=== PATIENT | male | born 1935 | race Caucasian/White ===

== ENCOUNTER 2018-03-24 14:03 | Inpatient (IN) | payer OTHER ==
[~2018-03-24] VITALS: Ht 177.8 cm; Wt 64.0 kg
[2018-03-24 14:09] VITALS: BP 137/58
[2018-03-24] MEDS ORDERED: VITAMIN B-12500 MCG PO (14:21)
[2018-03-24] MEDS ORDERED: OMEPRAZOLE 20 M20 M1 PO (14:22)
[2018-03-24] MEDS ORDERED: MIDODRINE HCL 55 M1 PO (14:22)
[2018-03-24] MEDS ORDERED: IRON325 PO (14:22)
[2018-03-24 14:25] LABS: HEMATOCRIT 29.2 % (42.0-52.0); HEMOGLOBIN 9.9 gm/dL (14.0-18.0); MCH 35.1 pg (26.0-34.0); MCHC 33.8 g/dL (28.0-37.0); MPV 7.5 fl. (7.2-11.1); NUCLEATED RBCS 0 /100WBC; PLATELET COUNT* 142 thou/uL (150-400); RBC 2.81 mil/uL (4.50-6.00); WBC 4.4 thou/uL (4.0-11.0)
[2018-03-24 14:43] LABS: APTT 27.4 Seconds (25.0-31.3); INR 1.1; PROTIME 10.6 Seconds (9.20-11.50)
[2018-03-24 14:51] LABS: ANION GAP 5 mmol/L (7-16); BUN 19 mg/dL (7-18); CALCIUM 8.4 mg/dL (8.5-10.1); CHLORIDE 102 mmol/L (98-107); CO2 30 mmol/L (21-32); CREATININE 1.3 mg/dL (0.6-1.3); GLUCOSE 98 mg/dL (70-99); SODIUM 137 mmol/L (136-145)
[2018-03-24 15:01] LABS: ABSOLUTE EOSINOPHILS 0.1 thou/uL (0.0-0.7); ABSOLUTE LYMPHOCYTES 0.3 thou/uL (0.8-5.3); ABSOLUTE MONOCYTES 0.3 thou/uL (0.0-1.2); ABSOLUTE NEUTROPHILS 3.7 thou/uL (1.6-8.1); ALBUMIN 3.5 g/dL (3.4-5.0); ALKALINE PHOSPHATASE 85 U/L (46-116); CK-MB MASS 1.6 ng/mL (<0.5-3.6); LIPASE 145 U/L (73-393); MAGNESIUM 1.9 mg/dL (1.8-2.4); NT-PRO BRAIN NAT PEPTIDE 408 pg/mL (<300); SGOT 22 U/L (15-37); SGPT 26 U/L (30-65); TOTAL BILIRUBIN 0.8 mg/dL (<0.1-1.0); TOTAL PROTEIN 7.1 g/dL (6.4-8.2); TROPONIN-I LEVEL <0.06 ng/mL (<0.06)
[2018-03-24 15:03] LABS: ANISOCYTOSIS 1+; MACROCYTES 1+; PLATELET ESTIMATE ADEQUATE
--- NOTE | 2018-03-24 15:08 | EKG ---
[place] [address] ELECTROCARDIOGRAM REPORT Name: VIANNEY MONTERO Room: [facility]#: [id number] Admission: 03/24/18 Attend Phys: Discharge: Date of : 37 Report #: [id number] THIS REPORT FOR: //name// [facility] ED Test Date: 2018-03-24 Test Time: 14:09:55 Pat Name: VIANNEY MONTERO Department: Room: Gender: M [employer]: : 1935 Requested By: Felix Kiser Order Number: [id number] MD: Farhan Burton Measurements Intervals [place] Rate: 55 P: -69 FL: 199 QRS: 45 QRSD: 91 T: 59 QT: 413 QTc: 395 Interpretive Statements Sinus or ectopic atrial rhythm No previous ECG available for comparison Electronically Signed On 03-24-2018 15:08:11 CDT by Farhan Burton [email or web address] <ELECTRONICALLY SIGNED> By: Farhan Burton MD, [facility] 03/24/18 1508 1409 1409 Farhan Burton MD, FACC /EPI
[2018-03-24 18:00] VITALS: BP 149/53
[2018-03-24 19:00] VITALS: BP 118/43
[2018-03-24 20:00] VITALS: BP 120/45
[2018-03-25] VITALS: BP 106/48
[2018-03-25 08:15] VITALS: BP 98/51
[2018-03-25 09:04] LABS: % SATURATION 19 % (20-39); IRON 40 ug/dL (50-175)
[2018-03-25 11:24] LABS: HEMATOCRIT 24.6 % (42.0-52.0); HEMOGLOBIN 8.5 gm/dL (14.0-18.0); MCH 35.1 pg (26.0-34.0); MCHC 34.4 g/dL (28.0-37.0); MPV 8.5 fl. (7.2-11.1); NUCLEATED RBCS 0 /100WBC; PLATELET COUNT* 133 thou/uL (150-400); RBC 2.41 mil/uL (4.50-6.00); RDW-CV 18.6 % (10.5-14.5); WBC 3.7 thou/uL (4.0-11.0)
[2018-03-25 11:33] LABS: ALBUMIN 3.1 g/dL (3.4-5.0); CALCIUM 8.5 mg/dL (8.5-10.1); CREATININE 1.3 mg/dL (0.6-1.3); POTASSIUM 3.7 mmol/L (3.5-5.1); TOTAL BILIRUBIN 0.8 mg/dL (<0.1-1.0); TOTAL PROTEIN 6.3 g/dL (6.4-8.2)
[2018-03-25 11:44] LABS: ABSOLUTE LYMPHOCYTES 0.2 thou/uL (0.8-5.3); ABSOLUTE NEUTROPHILS 3.5 thou/uL (1.6-8.1)
[2018-03-25 11:45] LABS: ANISOCYTOSIS 1+; PLATELET ESTIMATE DECREASED; POIKILOCYTOSIS 1+
[2018-03-25 11:54] VITALS: BP 104/37
[2018-03-25 14:12] VITALS: BP 102/38
--- NOTE | 2018-03-25 15:01 | 2DMMODE ---
[place] [address] 2 D/M-MODE ECHOCARDIOGRAM Name: VIANNEY MONTERO Room: [address] ADM IN [facility]#: [id number] Admission: 03/24/18 Attend Phys: Anyi Elena Discharge: Date of : 37 Date of Service: 03/25/18 1501 Report #: [id number] THIS REPORT FOR: //name// APPROVED REPORT Study performed: 03/25/2018 13:25:31 EXAM: Comprehensive 2D, Doppler, and color-flow Echocardiogram Patient Location: In-Patient Room #: 210 Status: routine BSA: 1.79 HR: 89 bpm BP: 104/37 mmHg Rhythm: NSR Other Information Study Quality: Good Indications Hypotension 2D Dimensions LVEF(%): 88.37 (>50%) IVSd: 12.72 (7-11mm) LVOT Diam: 19.38 (18-24mm) LVDd: 41.68 mm PWd: 12.91 (7-11mm) Ascending Ao: 30.80 (22-36mm) LVDs: 17.45 (25-40mm) Aortic Root: 32.08 mm Frederick's LVEF: 88.37 % Aortic Valve AoV Peak Wilber.: 1.88 m/s AO Peak Gr.: 14.08 mmHg LVOT Max P.70 mmHg AO Mean Gr.: 7.97 mmHg LVOT Mean P.20 mmHg LVOT Max V: 1.64 m/s AO V2 VTI: 35.79 cm LVOT Mean V: 1.04 m/s JI (VTI): 2.44 cm2 LVOT V1 VTI: 29.64 cm Mitral Valve E/A Ratio: 1.03 MV Decel. Time: 292.81 ms MV E Max Wilber.: 0.90 m/s MV PHT: 84.91 ms MVA (PHT): 2.59 cm2 [place] [address] 2 D/M-MODE ECHOCARDIOGRAM Name: VIANNEY MONTERO Room: [address] IN .R.#: [id number] Admission: 03/24/18 Attend Phys: Anyi Elena Discharge: Date of : 37 Date of Service: 03/25/18 1501 Report #: [id number] TDI E/Lateral E': 6.43 E/Medial E': 8.18 Medial E' Wilber.: 0.11 m/s Lateral E' Wilber.: 0.14 m/s Pulmonary Valve PV Peak Wilber.: 1.38 m/s PV Peak Gr.: 7.66 mmHg Left Ventricle The left ventricle is normal size. There is normal LV segmental wall motion. Mild concentric left ventricular hypertrophy. Left ventricular systolic function is hyperdynamic. LVEF is >70%. The left ventricular diastolic function is normal. Right Ventricle The right ventricle is normal size. The right ventricular systolic function is normal. Atria The left atrium size is normal. The right atrium size is normal. Aortic Valve The aortic valve is normal in structure. No aortic regurgitation is present. There is no aortic valvular stenosis. Mitral Valve The mitral valve is normal in structure. There is no mitral valve regurgitation noted. No evidence of mitral valve stenosis. Tricuspid Valve The tricuspid valve is normal in structure. Trace tricuspid regurgitation. Pulmonic Valve Pulmonic valve is not well visualized. There is no pulmonic valvular regurgitation. Great Vessels The aortic root is normal in size. IVC is normal in size and collapses with >50% inspiration Pericardium There is no [place] [address] 2 D/M-MODE ECHOCARDIOGRAM Name: VIANNEY MONTERO Room: [address] IN [facility]#: [id number] Admission: 03/24/18 Attend Phys: Anyi Elena Discharge: Date of : 37 Date of Service: 03/25/18 1501 Report #: [id number] <Conclusion> LVEF is >70%. Mild concentric left ventricular hypertrophy. <ELECTRONICALLY SIGNED> By: David Ruiz MD, [facility] 03/25/18 1501 1501 1501 David Ruiz MD, [facility] /INF
[2018-03-25 15:46] VITALS: BP 89/43
[2018-03-25 20:00] VITALS: BP 113/41
[2018-03-26] VITALS: BP 122/45
[2018-03-26 04:00] VITALS: BP 116/53
[2018-03-26 08:48] VITALS: BP 107/71
[2018-03-26 11:48] LABS: HEMATOCRIT 27.4 % (42.0-52.0); HEMOGLOBIN 9.4 gm/dL (14.0-18.0); MCH 35.6 pg (26.0-34.0); MCHC 34.5 g/dL (28.0-37.0); MCV 103.2 fL (80.0-100.0); MPV 7.8 fl. (7.2-11.1); NUCLEATED RBCS 0 /100WBC; PLATELET COUNT* 144 thou/uL (150-400); RBC 2.65 mil/uL (4.50-6.00); RDW-CV 19.2 % (10.5-14.5); WBC 10.4 thou/uL (4.0-11.0)
[2018-03-26 11:52] VITALS: BP 97/41
[2018-03-26 12:08] LABS: ALBUMIN 3.5 g/dL (3.4-5.0); CALCIUM 8.8 mg/dL (8.5-10.1); CREATININE 1.1 mg/dL (0.6-1.3); MAGNESIUM 1.9 mg/dL (1.8-2.4); TOTAL PROTEIN 6.8 g/dL (6.4-8.2)
[2018-03-26 12:48] LABS: ABSOLUTE LYMPHOCYTES 0.5 thou/uL (0.8-5.3); ABSOLUTE MONOCYTES 0.1 thou/uL (0.0-1.2); ABSOLUTE NEUTROPHILS 9.8 thou/uL (1.6-8.1); ANISOCYTOSIS 1+; PLATELET ESTIMATE DECREASED; POIKILOCYTOSIS 1+
[2018-03-26 16:01] VITALS: BP 91/42
[2018-03-26 20:00] VITALS: BP 101/42
[2018-03-27] VITALS: BP 105/55
[2018-03-27 04:00] VITALS: BP 120/60
[2018-03-27 04:53] LABS: HEMATOCRIT 27.1 % (42.0-52.0); HEMOGLOBIN 9.2 gm/dL (14.0-18.0); MCH 35.1 pg (26.0-34.0); MPV 8.7 fl. (7.2-11.1); RBC 2.63 mil/uL (4.50-6.00); RDW-CV 19.5 % (10.5-14.5)
[2018-03-27 05:18] LABS: CALCIUM 8.7 mg/dL (8.5-10.1); MAGNESIUM 1.7 mg/dL (1.8-2.4)
[2018-03-27 08:05] VITALS: BP 108/47
[2018-03-27] MEDS ORDERED: ACIDOPHILUS1 EAC4 PO (09:44)
[2018-03-27] MEDS ORDERED: CEFUROXIME500 MG PO (09:44)
[2018-03-27] MEDS ORDERED: VENTOLIN HFA 1818 GM INH (09:44)
[2018-03-27] MEDS ORDERED: FLORINEF ACETA0.1 MG PO (09:44)
[2018-03-27 11:59] VITALS: BP 108/47
[2018-03-27 12:00] VITALS: BP 119/58
--- NOTE | 2018-03-28 07:54 | CON ---
[address] [address] CONSULTATION Name: BRYANTCHARLAVIANNEY Diaz Room: [address] IN M.R.#: [id number] Admission: 03/24/18 Attend Phys: Naomie Smart Discharge: 03/27/18 Date of : 37 Report #: [id number] THIS REPORT FOR: //name// CC: MONO Elena DATE OF SERVICE: 03/25/2018 INFECTIOUS DISEASE CONSULTATION ATTENDING PHYSICIAN: Dr. Elena. REASON FOR EVALUATION: Pneumonitis, hypotension. HISTORY OF PRESENT ILLNESS: Chart reviewed, patient examined. 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 He believes he was diagnosed with pneumonia as well down there. He was scheduled followup with his primary care physician who he saw. Screening at that time showed systolic hypotension with levels in the 70s. He had been lightheaded as well, although no recent falls. On evaluation, chest x-ray showed right-sided infiltrate suggesting pneumonitis. CT of the pelvis was unremarkable. White count was actually normal. At this point, he is off oxygen therapy. He denies significant amount of cough. He does get dyspneic with activity, although not short of breath with rest. It is not clear if he has had any fever. He has had somewhat progressive weight loss of perhaps 30 pounds, although this has been over several months. He has not had any weight loss recently, although he states he has a poor appetite. Denies any significant GI related complaints. ALLERGIES: None known. MEDICATIONS: Include megestrol, multivitamin, Lactobacillus, fish oil, psyllium, Zosyn, ipratropium and albuterol inhaler, methylprednisolone. PAST MEDICAL HISTORY: As noted above, cataract surgery. SOCIAL HISTORY: Nonsmoker, no ethanol. FAMILY HISTORY: Noncontributory. REVIEW OF SYSTEMS: [place] [address] CONSULTATION Name: VIANNEY MONTERO Room: [address]#: [id number] Admission: 03/24/18 Attend Phys: Naomie Smart Discharge: 03/27/18 Date of : 37 Report #: [id number] PHYSICAL EXAMINATION: GENERAL: He is pleasant, alert, cooperative. He seems to have a fairly good orientation, is in mild distress. VITAL SIGNS: Temperature 97.9, pulse 67, respirations 16, blood pressure 90/51. SKIN: Warm, dry, no rashes. HEENT: Otherwise, unremarkable. NECK: Supple. LUNGS: Generally clear to auscultation. HEART: Regular. I do not appreciate any murmur. ABDOMEN: Soft, nontender, nondistended. EXTREMITIES: No cyanosis. GENITOURINARY: Deferred. RECTAL: Deferred. LABORATORY DATA: Sed rate of 26. B12 of 1268. Iron level is 40, lower limits of normal being 50 and low saturation. Lactic acid 1.8. CT of the pelvis was otherwise unremarkable. CTA chest PE protocol, focal consolidation and peripheral mid lung compatible with some pneumonitis. This was confirmed with chest x-ray as well. CBC: White count 4.4, H and H 9.9 and 29.4, platelets of 142. Electrolytes: Sodium 137, potassium 4.0, chloride 102, bicarbonate is 30, anion gap of 5, BUN and creatinine 19 and 1.3, glucose of 98. LFTs unremarkable. Albumin of 3.5. Total protein 7.1. Estimated GFR 53. ASSESSMENT: Pneumonitis. This may well be not an acute situation. He does not look overtly ill at this point. I think we can back off on the antibiotics how he does clinically. I think the hypotension may not be directly related to the septic shock situation, may be more chronic. We will monitor expectantly, try to increase his activity and see what happens with his hemodynamics. I discussed with the patient and spouse. <ELECTRONICALLY SIGNED> By: Gaurav Salcedo MD 03/28/18 0754 1114 1903Joleeann Salcedo MD /nt
--- NOTE | 2018-03-28 12:53 | CON ---
[address] [address] CONSULTATION Name: VIANNEY MONTERO Room: [address] IN M.R.#: [id number] Admission: 03/24/18 Attend Phys: Naomie Smart Discharge: 03/27/18 Date of : 37 Report #: [id number] THIS REPORT FOR: //name// CC: MONO Elena DATE OF SERVICE: 03/25/2018 CONSULT REQUESTED BY: Anyi Elena MD INDICATION FOR CONSULTATION: Pulmonary infiltrate and hypotension. HISTORY OF PRESENT ILLNESS: This is an 82-year-old gentleman. He has a history of smoking about a pack a day for 15 years, but he discontinued in the late 1960s and has been a nonsmoker since then. The patient does not have a previous history of cardiac or respiratory disease, although he does have reflux, and he does have macrocytic anemia. The patient was only recently admitted to an outside institution. The patient had been feeling dizzy. He had had a fall, had had fractures to his left ribs. The patient, on arrival, did have a CT chest performed at the outside institution and was found to have a right upper lobe infiltrate. The patient subsequently did receive levofloxacin. The patient also is noted to be hypotensive. He was fluid resuscitated at the outside institution. He continued to have low blood pressure. His creatinine was also mildly elevated. The patient eventually was given Florinef and then was started on midodrine. The patient was discharged home on midodrine as well as levofloxacin. The patient reports having had significant increase in shortness of breath as well as cough on initial presentation to the outside institution. He reports that these were significantly better when he was discharged. He does report sputum production as well, which he reports was subsided by the time he was discharged. The patient; however, does not report any fever and does not report upper respiratory complaints. There has been no swelling of lower extremities or calf pain. The patient subsequently went to a physician's office yesterday, was found to be markedly hypotensive with blood pressures in the range of 75 systolic and therefore, he was asked to come to this hospital. The patient does report having had ongoing dizziness. He says that he has not been able to ambulate much due to dizziness over the last several days. At this time, he says that he does have shortness of breath; however, it is significantly better than when he got admitted to the [place] [address] CONSULTATION Name: VIANNEY MONTERO Room: [address] IN [facility].#: [id number] Admission: 03/24/18 Attend Phys: Naomie Smart Discharge: 03/27/18 Date of : 37 Report #: [id number] have ongoing pain in his left lower chest, but this is where he had his rib fractures. He does have heartburn; however, this remains at baseline. Initially, he did have left-sided abdominal pain as well, which he reports is better now. He answered to the negative for 12 questions for review of systems except as mentioned above. PAST MEDICAL HISTORY: Gastroesophageal reflux disease. He has had dysphagia, which has previously been attributed to gastroesophageal reflux disease, recent admission to an outside institution with hypotension, dizziness and falls as well as pneumonia as mentioned above. Macrocytic anemia, B12 deficiency, appendectomy, cataract surgery, inguinal hernia repair. I do not have any previous echocardiogram available at this time. SOCIAL HISTORY: Smoker about a pack a day for 15 years, discontinued in 1968. Has not had a history of smoking since then. There is no known history of heavy alcohol use or illegal drug use either. CURRENT MEDICATIONS: List in [facility] reviewed. HOME MEDICATIONS: List also in [facility] reviewed. Note the patient was on midodrine 10 mg t.i.d. prior to this admission and still was hypotensive on evaluation by a physician yesterday as an outpatient. The patient is also noted to have had Levaquin recently. ALLERGIES: No known drug allergies. FAMILY HISTORY: Colon cancer, Alzheimer disease, diabetes. PHYSICAL EXAMINATION: GENERAL: He is alert, awake and oriented, does not appear to be in any distress at this time despite the fact that we just checked his blood pressure and found it to be on the lower side at 102/38. His pulse is 85. He is afebrile with temperature of 36.6. He is not on supplemental oxygen. He is saturating 99%. His body mass index is decreased to 20. He is thin and lean. HEENT: Pupils are equal and reactive. Head is normocephalic and atraumatic. There is mild throat erythema noted. NECK: Does not show raised JVP, asymmetry, mass or lymph nodes. CHEST: Symmetrical expansion on inspection and palpation. On auscultation, chest is clear. There is some bruising noted in the left lower chest and also in the left flank of his abdomen. There is some tenderness in this region. HEART: Regular. There is no murmur. ABDOMEN: Soft, nontender. EXTREMITIES: Lower extremities show no edema and no calf tenderness. SKIN: Dry and intact. NEUROLOGICAL: He does move all extremities bilaterally equally and spontaneously with no focal deficit identified. [address] [place] [address] CONSULTATION Name: VIANNEY MONTERO Room: [address] IN M.R.#: [id number] Admission: 03/24/18 Attend Phys: Naomie Smart Discharge: 03/27/18 Date of : 37 Report #: [id number] The patient did have a CTA of chest performed last night. It does not show any evidence of pulmonary emboli. There is a large area of infiltrate noted in the right upper lobe. The infiltrate does look mass like. There likely is some atelectasis present in this region as well. The patient's CBC as well as chemistries are in [facility] and these are reviewed. Note, the patient's creatinine is elevated this morning to 1.3 despite him receiving IV fluids during the night. Note that his baseline creatinine is 0.9. His coagulation studies are also in [facility] reviewed. There is a viral respiratory panel pending at this time. ASSESSMENT AND PLAN: 1. Pulmonary infiltrate/lung mass. There is a large area of infiltrate noted in the right upper lobe. I cannot rule out a mass in this region at this time. The patient's history; however, is more consistent with pneumonia, and note that he was recently admitted to an outside institution and treated for pneumonia. A lung contusion or dense area of atelectasis can also look similar on a CT. I do have the CT report from the outside institution; however, I do not have films available. At this time, I would plan for now follow this with a followup CT and see how this progresses. Note that the patient is on cephalosporin per the ID service, we will follow along. We will do a nasal swab for methicillin-resistant Staphylococcus aureus should the patient's condition deteriorate. Considering that he was recently treated extensively with Levaquin, I recommend having a low threshold of considering adding methicillin-resistant Staphylococcus aureus coverage. 2. Hypotension/dizziness/orthostatic hypotension. The patient still does appear to be describing symptoms of orthostatic hypotension. I do agree with midodrine. Note that his blood pressure is reported to be in the 70s when evaluated in the primary care physician's office yesterday. His blood pressure in fact was normal at 137/58 when first recorded here. His blood pressure again is on the lower side now. I did start midodrine again, but in the lower dose. He did have an echocardiogram performed. We will follow results. For now, I do favor giving him IV fluids as well. Note that his creatinine is elevated to 1.3 with a baseline of 0.9. From a pulmonary point of view, he should be able to tolerate more fluids. A question has also been raised as well the patient has adrenal insufficiency. While his potassium is not elevated, certainly this will still be possible. The patient has already received Solu-Medrol yesterday as well as today and a dose sufficient to address this for today. Potentially, we could do an ACTH stimulation test to evaluate this further; however, I would like to wait at least 24 hours after the last Solu-Medrol dose before considering this. Therefore, I discontinued Solu-Medrol for now. I did order dexamethasone beginning tomorrow morning, which does not interfere with ACTH stimulation testing. We will reevaluate and consider ordering the same tomorrow. It is, however, possible that such testing does not lead to a definite answer in this regard. 3. Macrocytic anemia/possible underlying malignancy. I do feel that his CT [address] [address] CONSULTATION Name: VIANNEY MONTERO Room: [address] IN M.R.#: [id number] Admission: 03/24/18 Attend Phys: Naomie Smart Discharge: 03/27/18 Date of : 37 Report #: [id number] chest needs to be followed as mentioned above. We will give further recommendations down the line. The hematology service is also evaluating. Thanks for this consultation. <ELECTRONICALLY SIGNED> By: Reyes Tubbs MD 03/28/18 1253 1426 [id number] Tubbs MD /nt
[2018-03-29 23:08] LABS: ADENOVIRUS Negative (Negative); INFLUENZA A Negative (Negative); INFLUENZA B Negative (Negative); METAPNEUMOVIRUS Negative (Negative); PARAINFLUENZA 1 Negative (Negative); PARAINFLUENZA 2 Negative (Negative); PARAINFLUENZA 3 Negative (Negative); RHINOVIRUS Negative (Negative); RSV A Negative (Negative); RSV B Negative (Negative)
== END 2018-03-27 13:30 | disposition home or self-care (01) | DRG 643 ==
LOC: M.ERS 14:03 → M.2W 16:25 → M.TBA-ER 16:25 → M.2W 18:32
PROVIDERS: Family Medicine; Internal Medicine; Internal Medicine Critical Care Medicine; ADMIT Internal Medicine
DX: E27.40 Unspecified adrenocortical insufficiency (principal); J15.9 Unspecified bacterial pneumonia; D61.811 Other drug-induced pancytopenia; I95.1 Orthostatic hypotension; D46.9 Myelodysplastic syndrome, unspecified; G30.9 Alzheimer's disease, unspecified; D50.9 Iron deficiency anemia, unspecified; D53.9 Nutritional anemia, unspecified; J44.9 Chronic obstructive pulmonary disease, unspecified; E53.8 Deficiency of other specified B group vitamins; R91.8 Other nonspecific abnormal finding of lung field; F02.80 Dementia in other diseases classified elsewhere, unspecified severity, without behavioral disturbance, psychotic disturbance, mood disturbance, and anxiety; K21.9 Gastro-esophageal reflux disease without esophagitis; Z87.81 Personal history of (healed) traumatic fracture; Z90.49 Acquired absence of other specified parts of digestive tract; Z87.11 Personal history of peptic ulcer disease; Z87.891 Personal history of nicotine dependence; Z79.899 Other long term (current) drug therapy; Z80.0 Family history of malignant neoplasm of digestive organs; Z82.0 Family history of epilepsy and other diseases of the nervous system; Z83.3 Family history of diabetes mellitus

== ENCOUNTER 2019-06-10 13:21 | Inpatient (IN) | payer OTHER ==
[~2019-06-10] VITALS: Ht 182.9 cm; Wt 63.2 kg
--- NOTE | ~2019-06-10 | CON ---
[address] [address] CONSULTATION Name: VIANNEY MONTERO Room: [address] IN M.R.#: [id number] Admission: 06/10/19 Attend Phys: Amadeo Mcpherson, Discharge: Date of : 37 Report #: [id number] THIS REPORT FOR: //name// CC: Hiren Boonemen DO Amadeo Mcpherson REQUESTING PHYSICIAN: Amadeo Mcpherson MD REASON FOR CONSULTATION: Thrombocytopenia. HISTORY OF PRESENT ILLNESS: The patient is a pleasant 83-year-old gentleman who had previously been seen by Dr. Farzana Mendoza as an inpatient about a year ago. At that time, the patient had very similar blood counts with a hemoglobin in the 9/10 range, a platelet around 72,000 and a white count around 4.4. Several weeks after that in 04/2018, the patient had seen Dr. Hiren Resendez who is one of the MDS specialist at . Then, performed a bone marrow biopsy, this came back pretty much unremarkable. There was no evidence of myelodysplasia. This was performed on 05/05/2018. It showed a normal cellular bone marrow 30% with normal appearing trilineage hematopoiesis and 0% blasts. At that time, they thought the peripheral smear showed macrocytic anemia, absolute lymphopenia, absolute eosinophilia and thrombocytopenia. Note that date on 05/05/2018, hemoglobin was 10.5 with an MCV of 106, RDW 17.2, white count of 4.5 and platelets of 88,000. Note also that cytogenetics returned as normal. The aspirate also showed increased storage iron with decreased sideroblastic iron. Also, note that on that date, they performed hematologic next generation sequencing for 141 targeted genes which all came back as normal. The patient had several followups including I think 08/2018, had not been seen since that time. The patient is admitted today. He currently was admitted several days ago. He lives with his at facility called [facility] here in [place]. He had fallen several times and appeared to be slightly more confused than his baseline. He was noted to have several rib fractures. Here, he has normal UA, he has been afebrile, he is not hypoxic. His blood counts were notable for hemoglobin of 9.8, white count 4.4 with an ANC 3500, AMC 105.3, platelets 72,000. INR normal at 1.0. UA unremarkable. Sodium slightly low at 127, BUN at 25, creatinine 1.6. He has had a CT head, which showed some age-related changes. Note that he has been seen by Dr. Kenya Boucher and she has plans for an EEG and also MRI head. Today, the patient is examined with his in the room who also has some worse dimension than the patient himself may have and also I believe a [id number]. The patient denies really any pain at this time. He denies any history of any headaches. He denies any change in vision, any trouble [address] [address] CONSULTATION Name: VIANNEY MONTERO Room: [address] IN M.R.#: [id number] Admission: 06/10/19 Attend Phys: Amadeo Mcpherson, Discharge: Date of : 37 Report #: [id number] talking, trouble swallowing, trouble moving his air or being shortness of air or cough. He denies any blood in his urine or stool, or nosebleeds. He thinks his weight has been stable. His family confirms that. His weight had dropped about 40 pounds a year ago, this sound like it has been stable and actually is about 8 pounds heavier than a year ago. The patient denies any diarrhea, any constipation, any dysuria, any ankle or arm swelling. The patient does describe some mild dyspepsia which is not uncommon for this patient by his description. LABORATORY DATA: As I mentioned lab results here show a BUN of 19, creatinine 1.2; total bilirubin 1.3, slightly higher than baseline; alkaline phosphatase 52, ALT 21, albumin 3.8. Note that TSH and iron studies are pending. Back in 03/2018 the iron was 40, slightly low; TIBC 216 slightly low; percent iron saturation 19%, low, again that was in 2018. Folate back then was 12.7 and B12 back then was 1268, again those are both to be redrawn. PAST MEDICAL HISTORY: Notable for the history of mild cytopenia with normal bone marrow in 2018. Agree with also a history of falling, also history of mild cognitive impairment, possible dementia, also history of hernia repair, also history of GERD. MEDICATIONS: At this time currently include; vitamin B12 of 500 mcg daily, fludrocortisone acetate 0.1 mg daily, lactobacillus 1 tab daily, iron sulfate 325 oral daily, pantoprazole 40 daily, tramadol 50 q.8 on a scheduled basis, did receive IV fluids, also there is electrolyte protocol in place. PHYSICAL EXAMINATION: VITAL SIGNS: Recent height is 5 feet 10. Note, there is a measurement of 6 feet, but other measurements were in the 5 feet 10 range that would correlate 5 feet 10 inches, 177.8 cm, weight recently about 145.9 pounds, which is 66.2 kilograms. Recent blood pressure 100/74 standing in the left arm, respirations have been 18, pulse 95. The patient has been afebrile and oral temperature 98.9. MOOD: The patient is slightly hard of hearing. His ear hearing aid is out. He is conversant and pleasant. His memory appears to be a little bit off in some of his answers to our questions. HEENT: Face appears to be symmetrical. Oropharynx clear without leukoplakia, erythema or masses or thrush. LYMPHATICS: No enlarged lymph nodes in the supraclavicular, cervical, axillary or inguinal epidural region. ABDOMEN: Scaphoid, no masses, nontender. No organomegaly. LUNGS: Appear to have good symmetric unlabored respirations without rhonchi, rales or wheezes. HEART: Appears to be regular rate. EXTREMITIES: Without unusual bruising noted. There [place] [address] CONSULTATION Name: VIANNEY MONTERO Room: [address] [place] [facility]#: [id number] Admission: 06/10/19 Attend Phys: Amadeo Mcpherson, Discharge: Date of : 37 Report #: [id number] ankles. ASSESSMENT AND PLAN: 1. Thrombocytopenia appears to be chronic in nature, going back at least 1 year, and no worse. In light of having had a bone marrow last year, I doubt additional workup would be needed at this time. I do agree with current plans for B12, folate and iron and if these are low, he probably might benefit from replacement. 2. Mentation changes recently worse on top of old ones. Defer to Dr. Boucher, but I agree with plans for MRI head and EEG. 3. Falling episodes may be related to orthostatic hypotension. The patient is on Florinef. 4. Rib fracture from fall. No specific therapy. Continue his tramadol as needed. 5. History of gastroesophageal reflux disease and gastroesophageal reflux symptoms. Continue his PPI. 6. Hyponatremia. Suggest following serial electrolytes. We will be available if other questions arise. By: [id number] Daniels MD /nt
[~2019-06-10 13:21] MED LIST: ACIDOPHILUS1 EAC4 PO; CEFUROXIME500 MG PO; FLORINEF ACETA0.1 MG PO; IRON325 PO; MIDODRINE HCL 55 M1 PO; OMEPRAZOLE 20 M20 M1 PO; VENTOLIN HFA 1818 GM INH; VITAMIN B-12500 MCG PO
[2019-06-10 13:30] VITALS: BP 134/59
[2019-06-10 14:04] LABS: CALCIUM 8.7 mg/dL (8.5-10.1); CREATININE 1.6 mg/dL (0.6-1.3)
[2019-06-10 14:04] LABS: ABSOLUTE EOSINOPHILS 0.1 thou/uL (0.0-0.7); ABSOLUTE LYMPHOCYTES 0.3 thou/uL (0.8-5.3); ABSOLUTE MONOCYTES 0.5 thou/uL (0.0-1.2); ABSOLUTE NEUTROPHILS 3.5 thou/uL (1.6-8.1); BASOPHILS 0.4 %; EOSINOPHILS 2.8 %; HEMATOCRIT 27.8 % (42.0-52.0); HEMOGLOBIN 9.8 gm/dL (14.0-18.0); LYMPHOCYTES 5.7 %; MCHC 35.1 g/dL (28.0-37.0); MCV 105.3 fL (80.0-100.0); MPV 7.7 fl. (7.2-11.1); NUCLEATED RBCS 0 /100WBC; PLATELET COUNT* 72 thou/uL (150-400); POLYS 79.1 %; RBC 2.64 mil/uL (4.50-6.00); RDW-CV 15.6 % (10.5-14.5); WBC 4.4 thou/uL (4.0-11.0)
[2019-06-10 14:04] LABS: BE -2.5 mmol/L (-2 to +3); PCO2 34.2 mmHg (35.0-45.0); PO2 90.9 mmHg (75.0-100.0); pH 7.415 (7.340-7.450)
[2019-06-10 14:09] LABS: ALBUMIN 3.9 g/dL (3.4-5.0); MAGNESIUM 1.3 mg/dL (1.8-2.4); TOTAL BILIRUBIN 1.3 mg/dL (<0.1-1.0); TOTAL PROTEIN 7.1 g/dL (6.4-8.2)
[2019-06-10 14:12] LABS: PROTIME 10.7 Seconds (9.20-11.50)
[2019-06-10 14:25] LABS: URINE BILIRUBIN NEGATIVE (Negative); URINE BLOOD TRACE (Negative); URINE CLARITY CLEAR; URINE COLOR YELLOW; URINE GLUCOSE-RANDOM NEGATIVE (Negative); URINE KETONES NEGATIVE (Negative); URINE LEUKOCYTES-REFLEX NEGATIVE (Negative); URINE NITRITE-REFLEX NEGATIVE (Negative); URINE PROTEIN NEGATIVE (Negative); URINE UROBILINOGEN 0.2 E.U./dl (0.2-1.0)
[2019-06-10 15:56] VITALS: BP 129/65
[2019-06-10 16:15] VITALS: BP 133/62
--- NOTE | 2019-06-10 17:19 | NUR ---
PT ADMITTED TO TELEMETRY ROOM 219 WITH AN ADMITTING DIAGNOSIS OF ANS, HYPONATREMIA, HYPOMAGNESNIA, AND RIB FRACTURES. PT IS ALERT AND ORIENTED X 4 AND ABLE TO VOICE ALL NEEDS. VSS. TRACING NSR ON MONITOR. PT REPORTS 7/10 PAIN TO LEFT SIDE RIBS AND LEFT LEG. HOURLY ROUNDING AND FALL PRECAUTIONS IN PLACE FOR PT SAFETY.
[2019-06-10 19:40] VITALS: BP 150/66
[2019-06-10 20:30] LABS: CALCIUM 8.5 mg/dL (8.5-10.1); CREATININE 1.4 mg/dL (0.6-1.3); POTASSIUM 4.2 mmol/L (3.5-5.1)
--- NOTE | 2019-06-10 22:16 | NUR ---
PT CARE ASSUMED AT 1930. SAT MAINTAINED IN RA. ALERT AND ORIENTED X4. PT IS REALLY WEAK. LEGS STARTED BUCKLING UPON TRANSFER TO [facility], STAFF PRESENT AT BEDSIDE TO PREVENT COMPLETE FALL. PT ASSISTED TO BED WITH THE HELP OF OTHER STAFF MEMBERS.
[2019-06-10 23:40] VITALS: BP 122/60
[2019-06-11] VITALS (9 sets, daily range): BP systolic 97–136; BP diastolic 43–74
[2019-06-11 04:56] LABS: HEMATOCRIT 27.2 % (42.0-52.0); HEMOGLOBIN 9.4 gm/dL (14.0-18.0); MCH 36.5 pg (26.0-34.0); MCHC 34.7 g/dL (28.0-37.0); MCV 105.2 fL (80.0-100.0); MPV 8.3 fl. (7.2-11.1); RBC 2.58 mil/uL (4.50-6.00); RDW-CV 15.6 % (10.5-14.5)
[2019-06-11 05:28] LABS: ALBUMIN 3.8 g/dL (3.4-5.0); CALCIUM 8.4 mg/dL (8.5-10.1); CREATININE 1.2 mg/dL (0.6-1.3); PHOSPHORUS* 2.8 mg/dL (2.5-4.9); POTASSIUM 4.1 mmol/L (3.5-5.1)
--- NOTE | 2019-06-11 08:00 | NUR ---
PT CARE ASSUMED AT 1930. SAT MAINTAINED AT RA. PT IS IMPULSIVE, EDUCATION GIVEN NEEDS REINFORCEMENT. CONFUSED ORIENTED TO HIMSELF AND TIME. CALL LIGHT WITHIN REACH AND BED IN LOW POSITION. C/O PAIN, MEDICATION GIVEN PER EMAR. HOURLY ROUNDING DONE FOR PT SAFETY.
--- NOTE | 2019-06-11 08:53 | NUR ---
INITAL ASSESSMENT COMPLETED CHARTED. PT WAS ABLE TO ANSWER ALL ORIENTATION QUESTIONS APPROPRIATELY. VSS. TRACING NSR ON MONITOR. PT DENIES CP, SOA, N/V/D. PT CAN BECOME FORGETFUL AT TIMES. PT DENIES ANY FUIRTHER NEEDS. HOURLY ROUNDING AND FALL PRECAUTIONS IN PLACE FOR PT SAFETY. CLWR.
--- NOTE | 2019-06-11 14:32 | EKG ---
[place] [address] ELECTROCARDIOGRAM REPORT Name: BRYANTCHARLAVIANNEY Joe Room: [address] ADM IN M.R.#: [id number] Admission: 06/10/19 Attend Phys: Amadeo Mcpherson, Discharge: Date of : 37 Report #: [id number] THIS REPORT FOR: //name// [facility] ED Test Date: 2019-06-10 Test Time: 13:34:18 Pat Name: VIANNEY MONTERO Department: Room: [facility] Gender: M Chain Carrier: ARNAUD : 1935 Requested By: Miriam Hollis Order Number: [id number] MD: Farhan Burton Measurements Intervals Kirby Rate: 63 P: -15 NV: 188 QRS: 15 QRSD: 96 T: 32 QT: 387 QTc: 397 Interpretive Statements Sinus rhythm Abnormal R-wave progression, early transition Compared to ECG 03/24/2018 14:09:55 Ectopic atrial rhythm no longer present Electronically Signed On 06-11-2019 14:32:28 CHECK TOTALER by Farhan Burton [email or web address] <ELECTRONICALLY SIGNED> By: Farhan Burton MD, FACC 06/11/19 1432 1334 1334 Farhan Burton MD, [facility] /EPI
[2019-06-11 21:27] LABS: % SATURATION 20 % (20-39); IRON 43 ug/dL (50-175)
[2019-06-12] VITALS (7 sets, daily range): BP systolic 107–142; BP diastolic 41–85
--- NOTE | 2019-06-12 05:34 | NUR ---
PT CARE ASSUMED AT 1930. SAT MAINTAINED IN . PT IS CONFUSED. WHEN ASKED ORIENTATION QUESTION SAID "HE WILL BE HONEST HE DOESN'T KNOW HIS NAME". PT REALLY AGITATED AND IMPULSIVE REQUIRING 4 NURSES TO HOLD HIM, CALLED SECURITY, PHYSICIAN NOTIFIED, MEDICATION GIVEN PER EMAR. HOURLY ROUNDING DONE FOR PT SAFETY.
--- NOTE | 2019-06-12 11:01 | NUR ---
ASSUMED CARE AFTER REPORT APPROX 0730. DISORIENTED X4. COMBATIVE WITH STAFF. UNABLE TO OBTAIN ORTHOSTATICS. PRN HALDOL AND ATIVAN GIVEN. UNABLE TO TRANSFER TO CART FOR MRI PATIENT IS UNCOOPERATIVE. FREQUENT CHECKS. BED/CHAIR ALARM AT ALL TIMES.
--- NOTE | 2019-06-12 11:55 | NUR ---
BLADDER SCAN SHOWS LARGE AMOUNT OF URINE RETAINED IN BLADDER. RILEY CATHETER PLACED. CATHETER DRAINING CONCENTRATED YELLOW, URINE TO DEPENDENT DRNG. FREQUENT CHECKS FOR PATIENT UNABLE TO EXPRESS NEEDS TO STAFF.
[2019-06-12 12:36] LABS: CALCIUM 8.3 mg/dL (8.5-10.1); CREATININE 1.1 mg/dL (0.6-1.3); POTASSIUM 4.1 mmol/L (3.5-5.1)
[2019-06-13] VITALS (9 sets, daily range): BP systolic 83–145; BP diastolic 42–118
[2019-06-13] LABS: URINE BILIRUBIN NEGATIVE (Negative); URINE BLOOD 3+ (Negative); URINE CLARITY CLEAR; URINE COLOR YELLOW; URINE GLUCOSE-RANDOM NEGATIVE (Negative); URINE KETONES 2+ (Negative); URINE LEUKOCYTES-REFLEX 2+ (Negative); URINE NITRITE-REFLEX NEGATIVE (Negative); URINE PROTEIN TRACE (Negative); URINE UROBILINOGEN 0.2 E.U./dl (0.2-1.0)
[2019-06-13 00:04] LABS: MUCUS None Seen strn/LPF (None Seen); SQUAMOUS 0-3 Few /LPF (0-3)
[2019-06-13 00:05] LABS: BACTERIA-REFLEX 1-9 Few /HPF (None Seen); CASTS None Seen /LPF (None Seen); CRYSTALS None Seen /LPF (None Seen); URINE WBC-REFLEX 6-15 Few /HPF (0-5)
--- NOTE | 2019-06-13 06:30 | NUR ---
PT CARE ASSUMED AT 1930. PT CONFUSED AND AGITATED. SITTER AT BEDSIDE FOR PT SAFETY. CALL LIGHT WITHIN REACH AND BED IN LOW POSITION. TRYING TO PULL ON CATHETER, ATIVAN GIVEN PER ORDERED X 1 THROUGHOUT THE NIGHT. HOURLY ROUNDING DONE FOR PT SAFETY.
--- NOTE | 2019-06-13 13:12 | NUR ---
ASSUMED CARE OF PATIENT THIS AM AT 0730. PATIENT IS DROWSY, ORIENTED TO PERSON ONLY THIS AM. PATIENT IS PULLING AT TUBES AND LINES. 1:1 OBSERVATION CONTINUED FOR PATIENT SAFETY. BILATERAL SOFT WRIST RESTRAINTS ORDERED TO KEEP PATIENT SAFE. TELE SHOW SR. LUMBAR PUNCTURE SCHEDULED FOR TOMMORROW BECAUSE PATIENT HAS ALREADY EATEN TODAY. ATTEMPTED MRI THIS AFTERNOON. PATIENT PREMEDICATED PER ORDER WITH IM GEODON X 1. MEDICATION WAS INEFFECTIVE PATIENT WOULD NOT LIE STILL. TELE SHOWS SR TO ST.
--- NOTE | 2019-06-13 14:14 | 2DMMODE ---
[place] [address] 2 D/M-MODE ECHOCARDIOGRAM Name: VIANNEY MONTERO Room: [address] IN [facility]#: [id number] Admission: 06/10/19 Attend Phys: Amadeo Brito Discharge: Date of : 37 Date of Service: 06/13/19 1414 Report #: [id number] THIS REPORT FOR: //name// APPROVED REPORT Study performed: 06/13/2019 11:30:56 EXAM: Comprehensive 2D, Doppler, and color-flow Echocardiogram Patient Location: In-Patient Room #: 219 Status: routine BSA: 1.84 HR: 92 bpm BP: 130/58 mmHg Rhythm: NSR Other Information Technically limited study due to uncooperative patient, inability to position patient. Indications Dyspnea Aortic Valve AoV Peak Wilber.: 1.59 m/s AO Peak Gr.: 10.10 mmHg LVOT Max P.87 mmHg AO Mean Gr.: 5.25 mmHg LVOT Mean P.74 mmHg LVOT Max V: 1.40 m/s AO V2 VTI: 24.67 cm LVOT Mean V: 0.88 m/s LVOT V1 VTI: 24.21 cm Tricuspid Valve RAP Estimate: 5.00 mmHg TR Peak Gr.: 31.47 mmHg RVSP: 36.00 mmHg PA Pressure: 36.00 mmHg Left Ventricle The left ventricle is normal size. There is normal LV segmental wall motion. There is normal left ventricular wall thickness. Left ventricular systolic function is vigorous. LVEF is >70%. Grade I - abnormal relaxation pattern. Right Ventricle The right ventricle is normal size. The right ventricular [place] [address] 2 D/M-MODE ECHOCARDIOGRAM Name: VIANNEY MONTERO Room: [address] IN .R.#: [id number] Admission: 06/10/19 Attend Phys: Amadeo Brito Discharge: Date of : 37 Date of Service: 06/13/19 1414 Report #: [id number] Atria The left atrium size is normal. The right atrium size is normal. Aortic Valve The aortic valve is normal in structure. Trace aortic regurgitation. There is no aortic valvular stenosis. Mitral Valve There is mitral annular calcification. There is no mitral valve regurgitation noted. No evidence of mitral valve stenosis. Tricuspid Valve The tricuspid valve is normal in structure. Mild tricuspid regurgitation. Mild pulmonary hypertension. Pulmonic Valve The pulmonary valve is normal in structure. There is no pulmonic valvular regurgitation. Great Vessels The aortic root is normal in size. IVC is normal in size and collapses >50% with inspiration. Pericardium There is no pericardial effusion. <Conclusion> The left ventricle is normal size. There is normal left ventricular wall thickness. Left ventricular systolic function is vigorous. LVEF is >70%. Grade I - abnormal relaxation pattern. Trace aortic regurgitation. Mild tricuspid regurgitation. Mild pulmonary hypertension. IVC is normal in size and collapses >50% with inspiration. <ELECTRONICALLY SIGNED> By: Farhan Burton MD, FACC 06/13/19 1414 1414 1414 Farhan Burton MD, FACC /INF
--- NOTE | 2019-06-13 14:35 | NUR ---
CM spoke with EZEQUIEL in room. Pt normally resides at [facility] with his , Pt helps to take care of , has Alz. Pt is normally independent. No DME. No hx of HH or SNF. is current with [facility]. Per nursing, Pt has been combative and disoriented, which is not his baseline. Neuro following. Forbes placed yesterday. Following for dispo.
[2019-06-14] VITALS (9 sets, daily range): BP systolic 101–133; BP diastolic 43–62
[2019-06-14 05:52] LABS: HEMATOCRIT 27.6 % (42.0-52.0); HEMOGLOBIN 9.7 gm/dL (14.0-18.0); MCHC 35.1 g/dL (28.0-37.0); MCV 105.2 fL (80.0-100.0); RBC 2.62 mil/uL (4.50-6.00); RDW-CV 15.8 % (10.5-14.5); WBC 8.8 thou/uL (4.0-11.0)
[2019-06-14 06:12] LABS: CALCIUM 8.3 mg/dL (8.5-10.1); CREATININE 1.1 mg/dL (0.6-1.3); MAGNESIUM 1.6 mg/dL (1.8-2.4); POTASSIUM 3.6 mmol/L (3.5-5.1)
--- NOTE | 2019-06-14 07:56 | NUR ---
PT CARE ASSUMED AT 1930. SAT MAINTAINED IN RA. PT DROWSY, UNABLE TO WAKE UP. SITTER PRESENT AT BEDSIDE. B/L SOFT WRISTS UNTIED AT 0130 PT WAS CALM AND ASLEEP. AT TIMES PT WAS AWAKE BUT CONFUSED. AGITATED AT TIMES BUT WAS ABLE TO SETTLE DOWN EASILY. CALL LIGHT WITHIN REACH AND BED IN LOW POSITION. BP SOFT, PHYSICIAN INFORMED AND ORDERS FOLLOWED. THIS AM PT SCREENED POSITIVE FOR SEPSIS, PHYSICIAN NOTIFIED AND ORDERS FOLLOWED. PT HAS A NOTICEABLE GIRGLING SOUND AT TIMES, SUCTION AT BEDSIDE. HOURLY ROUNDING DONE FOR PT SAFETY.
[2019-06-14 11:36] LABS: CSF COLOR COLORLESS; VOLUME 12 ml
[2019-06-14 11:37] LABS: CSF CLARITY CLEAR; CSF RBC 17.2 /mm3; CSF WBC 0 /mm3 (0-10)
[2019-06-14 12:07] LABS: CSF GLUCOSE 64 mg/dl (40-70); CSF PROTEIN 63.4 mg/dl (15-45)
[2019-06-14 15:56] LABS: HEMATOCRIT 28.1 % (42.0-52.0); MCHC 35.6 g/dL (28.0-37.0); MCV 104.1 fL (80.0-100.0); MPV 7.7 fl. (7.2-11.1); NUCLEATED RBCS 0 /100WBC; PLATELET COUNT* 92 thou/uL (150-400); RDW-CV 15.6 % (10.5-14.5); WBC 9.7 thou/uL (4.0-11.0)
[2019-06-14 16:20] LABS: ALBUMIN 3.1 g/dL (3.4-5.0); CALCIUM 8.2 mg/dL (8.5-10.1); CREATININE 1.1 mg/dL (0.6-1.3); POTASSIUM 3.9 mmol/L (3.5-5.1); TOTAL PROTEIN 6.4 g/dL (6.4-8.2)
[2019-06-14 16:36] LABS: ABSOLUTE LYMPHOCYTES 0.1 thou/uL (0.8-5.3); ABSOLUTE MONOCYTES 0.1 thou/uL (0.0-1.2); ABSOLUTE NEUTROPHILS 9.5 thou/uL (1.6-8.1); PLATELET ESTIMATE DECREASED
[2019-06-14 16:37] LABS: MACROCYTES 1+
[2019-06-15 00:08] VITALS: BP 116/57
[2019-06-15 04:00] VITALS: BP 129/59
[2019-06-15 04:56] LABS: HEMATOCRIT 26.4 % (42.0-52.0); HEMOGLOBIN 9.3 gm/dL (14.0-18.0); MCH 36.9 pg (26.0-34.0); MCHC 35.1 g/dL (28.0-37.0); MPV 7.6 fl. (7.2-11.1); RBC 2.51 mil/uL (4.50-6.00); RDW-CV 15.6 % (10.5-14.5); WBC 9.8 thou/uL (4.0-11.0)
[2019-06-15 05:04] LABS: CALCIUM 8.4 mg/dL (8.5-10.1); CREATININE 1.1 mg/dL (0.6-1.3); POTASSIUM 3.9 mmol/L (3.5-5.1)
--- NOTE | 2019-06-15 06:35 | NUR ---
PT IS ABLE TO COMMUNICATE HIS NEEDS TO STAFF WITH SOME DIFFICULTY; HE IS QUITE [id number] (RAKESH. WHEN HIS HEARING AIDS ARE NOT IN), HE IS CONFUSED AND IMPULSIVE WELL. HE DOES FOLLOW COMMANDS WELL AND IS SOME WHAT COOPERATIVE. CURRENT PAIN MEDICATION REGIMEN HAS BEEN ADEQUATE FOR CONTROLLING HIS PAIN UP TO THIS TIME. 1:1 SITTER MAINTAINED DURING RESTAURANT SERVICE MANAGER; PT STILL PULLS AT MEDICAL DEVICES AND TRIES TO EXIT BED WITHOUT ASSIST. 1750ML FLUID RESTRICTION MAINTAINED.
[2019-06-15 08:00] VITALS: BP 76/41
--- NOTE | 2019-06-15 10:23 | NUR ---
ASSUMED PT CARE AT 0800, AOX TO SELF, UP WITH ASSIST, O2 SAT 90'S RA. TRACING SR ON TELE. PT DENIES PAIN. PT HAS A SITTER. PT HAS RILEY CATH DRAINING WELL. PT HAS FLUID RESTRICTION, I&O MONITOR. PT ON HONEY THICK LIQUID, MECHANICAL SOFT DIET. BP RUN SOFT. AM ASSESSMENT CHARTED, MEDS GIVEN PER MAR, CALL LIGHT WITHIN REACH, HOURLY ROUNDING, WILL CONTINUE TO MONITOR.
[2019-06-15 10:44] LABS: URINE BILIRUBIN NEGATIVE (Negative); URINE BLOOD 3+ (Negative); URINE CLARITY CLEAR; URINE COLOR DARK YELLOW; URINE GLUCOSE-RANDOM NEGATIVE (Negative); URINE KETONES NEGATIVE (Negative); URINE LEUKOCYTES-REFLEX NEGATIVE (Negative); URINE NITRITE-REFLEX NEGATIVE (Negative); URINE PROTEIN TRACE (Negative); URINE UROBILINOGEN 0.2 E.U./dl (0.2-1.0)
[2019-06-15 10:54] LABS: SQUAMOUS NONE SEEN /LPF (0-3); URINE WBC-REFLEX 6-15 Few /HPF (0-5)
[2019-06-15 10:56] LABS: BACTERIA-REFLEX None Seen /HPF (None Seen); HYALINE CASTS 0-3 Few /LPF (None Seen); MUCUS 0-3 Light strn/LPF (None Seen)
[2019-06-15 10:57] LABS: AMORPHOUS URATES Few /LPF (None Seen)
[2019-06-15 11:23] VITALS: BP 103/54
[2019-06-15 15:55] VITALS: BP 103/39
[2019-06-15 20:29] VITALS: BP 114/53
[2019-06-16 00:06] VITALS: BP 123/45
[2019-06-16 04:07] VITALS: BP 118/58
[2019-06-16 07:30] VITALS: BP 115/50
--- NOTE | 2019-06-16 08:13 | NUR ---
PT IS ABLE TO COMMUNICATE HIS NEEDS TO STAFF WITH SOME DIFFICULTY; HE IS STILL SOMEWHAT DISORIENTED, IMPULSIVE, AND CONFUSED. ADDITIONALLY, HE IS [id number]. 1:1 SITTER OBSERVATION MAINTAINED; PT STILL TRYING TO EXIT BED ALONE AND PULLING AT MEDICAL DEVICES. OSVALDO IS PATENT.
--- NOTE | 2019-06-16 11:24 | NUR ---
ASSUMED PT CARE AT 0730, AOX TO SELF, 1:1 SITTER. O2 SAT 90'S RA, TRACING SR ON TELE. PT DENIES PAIN. VSS, AM ASSESSMENT CHARTED, MEDS GIVEN PER MAR, WILL CONTINUE TO MONITOR.
[2019-06-16 12:10] VITALS: BP 120/54
--- NOTE | 2019-06-16 12:46 | EEG ---
[address] [address] EEG STUDY REPORT Name: VIANNEY MONTERO Room: [address] IN M.R.#: [id number] Admission: 06/10/19 Attend Phys: Amadeo Mcpherson, Discharge: Date of : 36 Report #: [id number] THIS REPORT FOR: //name// CC: Ct Mcpherson DATE OF SERVICE: 06/12/2019 This patient is being evaluated for altered mental status. EEG was done by placing the electrode by standard 10-20 system of electrode placement. Both referential and sequential montages were used for recording. Background activity in this patient's EEG is about 7 Hz and 30 microvolts. It is a nonspecific slowing. Photic stimulation is unremarkable. The patient became drowsy that is associated with bilateral slowing and vertex sharp waves. Throughout the record, no active epileptiform activity was noticed. IMPRESSION: This patient's EEG is abnormal because it is intermixed with theta range slowing on both sides. That is a nonspecific abnormality, which can occur with encephalopathy, effect of psychotropic medication, dementia, etc. Clinical correlation is recommended. <ELECTRONICALLY SIGNED> By: Jhonny Matthews MD 06/16/19 1246 1526 [id number] Matthews MD /nt
[2019-06-16 15:48] VITALS: BP 132/62
[2019-06-16 20:00] VITALS: BP 147/66
[2019-06-17] VITALS: BP 131/57
--- NOTE | 2019-06-17 00:52 | NUR ---
PT ALERT CONFUSED. ATTEMPTS TO FREQUENTLY GET OOB. PULLING AT RILEY. 1:1 SITTER WITH PT. TELEM, SHOWS SR. VITAMIN BAG SWITCHED OVER TO NS AT 100MLS/HR. TRAMADOL SCHEDULED GIVEN FOR BACK PAIN. WCTM.
[2019-06-17 04:00] VITALS: BP 128/59; BP 142/67; BP 146/64
[2019-06-17 08:00] VITALS: BP 128/65
[2019-06-17 12:45] VITALS: BP 132/69
--- NOTE | 2019-06-17 17:49 | NUR ---
PATIENT RESTING IN BED. UP WITH MAX ASSIST X2. AOX1 AND CONFUSED/ARGUMENTATIVE AT TIMES. VSS. HOURLY ROUNDING COMPLETED FOR PATIENT SAFETY. RILEY TO DRAIN.
[2019-06-17 20:00] VITALS: BP 132/69
--- NOTE | 2019-06-18 01:58 | NUR ---
PT CHANGED TO MS STATUS. ALERT CONFUSED. HAVING VISUAL HALLUCINATIONS. REACHING INTO THE AIR. TALKING WORD SALAD. TURNING Q 2 HRS. TRAMADOL SCHEDLULED FOR BACK PAIN. RILEY WITH YELLOW. PT REFUSING WATER AT TIMES WHEN DRY MOUTH BOTHERS HIM.
[2019-06-18 04:00] VITALS: BP 153/62
--- NOTE | 2019-06-18 04:27 | NUR ---
O2 SAT 85% ON RA. O2 AT 1 LITER NC PLACED ON PT. O2 SAT 93%
[2019-06-18 07:47] VITALS: BP 126/59
[2019-06-18 13:27] LABS: HEMATOCRIT 25.6 % (42.0-52.0); HEMOGLOBIN 8.8 gm/dL (14.0-18.0); MCH 36.7 pg (26.0-34.0); MCHC 34.4 g/dL (28.0-37.0); MCV 106.5 fL (80.0-100.0); MPV 7.9 fl. (7.2-11.1); RBC 2.41 mil/uL (4.50-6.00); RDW-CV 15.8 % (10.5-14.5); WBC 6.8 thou/uL (4.0-11.0)
[2019-06-18 13:39] LABS: CALCIUM 8.1 mg/dL (8.5-10.1); CREATININE 0.9 mg/dL (0.6-1.3); POTASSIUM 3.6 mmol/L (3.5-5.1)
[2019-06-18 15:37] VITALS: BP 110/43
--- NOTE | 2019-06-18 18:29 | NUR ---
patient resting in bed. aox1 and confused. times of hallucinations. redirectable with moderate effort. VSS. hourly rounding completed for patinetf safety
[2019-06-18 20:00] VITALS: BP 118/52
[2019-06-19] VITALS: BP 137/63
[2019-06-19 04:43] LABS: HEMATOCRIT 23.6 % (42.0-52.0); HEMOGLOBIN 8.3 gm/dL (14.0-18.0); MCH 36.4 pg (26.0-34.0); MCV 104.1 fL (80.0-100.0); MPV 7.8 fl. (7.2-11.1); RBC 2.27 mil/uL (4.50-6.00); RDW-CV 15.6 % (10.5-14.5); WBC 6.6 thou/uL (4.0-11.0)
[2019-06-19 04:50] LABS: CREATININE 0.9 mg/dL (0.6-1.3)
--- NOTE | 2019-06-19 06:50 | NUR ---
ASSUMED CARE OF PT AFTER REPORT AT 1930. PT CONFUSED, APPEARS TO HAVE VISUAL HALLUCINATIONS. PT TRIED TO PULL OUT IV AND RILEY. PT O2 SAT 89-93%-REFUSED TO WEAR O2. PT ON MEDSURG STATUS. PT WITH RILEY TO DEPENEDENT DRAIN. PT TURNED TO SIDES. PT COMPLAINED OF BACK PAIN-MEDS GIVEN PER OCT. PT ON 1:1 SITTER FOR SAFETY. FALL PRECAUTIONS IN PLACE.
[2019-06-19 08:00] VITALS: BP 135/49
--- NOTE | 2019-06-19 10:52 | NUR ---
ASSUMED PT CARE AT 0800, AOX TO SELF, IMPULSIVE O2 SAT 90'S RA, PT MEDSURG. PT HAS SITTER. PT RILEY CATH INTACT. LAST BM 06/17/19. IV ACCESS INTACT, PT ON ELECTROLYTE PROTOCOL. PT FOR MRI. VSS, AM ASSESSMENT CHARTED, MEDS GIVEN PER OCT, WILL CONTINUE TO MONITOR
--- NOTE | 2019-06-19 12:56 | NUR ---
CM faxed referral to [facility] charly psych, for possible charly psych placement per Drs recommendation. Awaiting decision. Following.
--- NOTE | 2019-06-19 13:23 | NUR ---
Nutrition: Pt admitted s/p fall, increased confusion. Seen for LOS. Chopped diet with Honey thick. Unsure of po intake today. Wt stable, 139#. K+ 3, albumin 3.1. Encourage good po intake and fluid intake. Appears at mild nutrition risk at this time.
[2019-06-19 14:09] LABS: CSF VDRL Non Reactive (Non Rea:<1:1)
[2019-06-19 18:15] VITALS: BP 137/58
[2019-06-19 21:19] VITALS: BP 146/55
[2019-06-19 23:51] VITALS: BP 146/55
--- NOTE | 2019-06-20 05:04 | NUR ---
PATIENT BECAME AGITATED SEVERAL TIMES AND DISPLAYED CONFUSION THROUGHOUT SHIFT. MONITORED RILEY AND APPLIED ANOTHER STAT LOCK FOR HIS SAFETY. SITTER WAS IN THE ROOM OFF AND ON THROUGH NIGHT WHEN HE WAS AWAKE. WE KEPT HIS BED ALARM ON SENSITIVE AND MONITORED HIM HOURLY ROUNDS. PLAN IS TO POSSIBLY BE CONSULTING GERIATRIC PSYCH. WILL CONTINUE TO FOLLOW PLAN OF CARE.
[2019-06-20 07:50] VITALS: BP 114/63; BP 138/56
[2019-06-20] MEDS ORDERED: INTERMEZZO3.5 MG PO (12:29)
[2019-06-20] MEDS ORDERED: HALOPERIDOL 2 MG2 M1 PO (12:30)
[2019-06-20] MEDS ORDERED: PROMETHAZINE HC25 M1 PO (12:34)
[2019-06-20] MEDS ORDERED: ONDANSETRON HCL4 M2 PO (12:35)
[2019-06-20] MEDS ORDERED: MYLANTA MAXIMU355 ML PO (12:36)
[2019-06-20] MEDS ORDERED: SLEEP AID50 MG PO (12:40)
[2019-06-20] MEDS ORDERED: LAXATIVE5 M1 PO (12:42)
[2019-06-20] MEDS ORDERED: TYLENOL325 MG PO (12:45)
[2019-06-20] MEDS ORDERED: FOLIC ACID1 MG PO (12:46)
[2019-06-20] MEDS ORDERED: LORAZEPAM 0.50.5 MG PO (12:47)
[2019-06-20 12:48] VITALS: BP 138/56
--- NOTE | 2019-06-20 13:17 | NUR ---
CALL FROM [facility] ABOUT 1100, STATING THEY COULD ACCET PT.TO DR.ANDREW CLARKE. HE CANNOT COME WITH HIS RILEY OR IV. ON FLOOR AND SAID HE TALKED TO AND HE HAS ACCEPTED HIM. OK TO DC RILEY AND IV. GAVE JUSTINO IBRAHIM NUMBER TO CALL REPORT. CM WILL FAX ORDERS. CHART COPIED TO GO WITH PT. SPOKE WITH DPYANETH ON PHONE. SHE WAS IN PT.ROOM A LITTLE WHILE LATER. CM EXPLAINED [facility] AND DPOA AGREEABLE AND SIGNED [employer]A FORM.
--- NOTE | 2019-06-20 14:00 | NUR ---
PT.READY TO GO TO [facility]. AMBULANCE ARRANGED FOR 1500. NOTIFIED DPOA OF SPOUT WORKER TIME. FAXED COPY OF DPOA FOR PTONEIL BLAIR AT [facility],ALEXIS KU COPY COMING IN PACKET WITH PT.
--- NOTE | 2019-06-20 17:06 | NUR ---
ASSUMED CARE OF PATIENT AT APPROX 0730. ALERT BUT VERY CONFUSED. ASSESSMENT COMPLETED AND CHARTED. VSS ON ROOM AIR. NO COMPLAINTS THIS SHIFT. PATIENT DID NOT COMMUNICATE WITH NURSE DURING ASSESSMENT THIS AM. DID NOT WANT BLOOD PRESSURE TAKEN, TOOK 3 ATTEMPTS TO GET AN ACCURATE BLOOD PRESSURE. PATIENT REFUSED MORNING MEDICATIONS. RILEY REMOVED AND PATIENT VOIDED USING URINAL WITHOUT ISSUE. PATIENT DISCHARGED AT 1600 WITH ALL PERSONAL BELONGING AND DISCHARGE PACKET. PATIENT TRANSPORTED BY AMBULOANCE AND EMS.
== END 2019-06-20 16:00 | DRG 682 ==
LOC: M.ERS 13:21 → M.TBA-ER 15:13 → M.2W 15:13 → M.ORTHSURG 06-19 14:15
PROVIDERS: Family Medicine; Internal Medicine; Personal Emergency Response Attendant; ADMIT Family Medicine
PROC: 009U3ZX Drainage of Spinal Canal, Percutaneous Approach, Diagnostic (ICD-10-PCS; principal; 2019-06-14)
PROC: B01B1ZZ Fluoroscopy of Spinal Cord using Low Osmolar Contrast (ICD-10-PCS; principal; 2019-06-14)
DX: N17.9 Acute kidney failure, unspecified (principal); G93.41 Metabolic encephalopathy; S22.42XA Multiple fractures of ribs, left side, initial encounter for closed fracture; E87.1 Hypo-osmolality and hyponatremia; E27.40 Unspecified adrenocortical insufficiency; N39.0 Urinary tract infection, site not specified; D69.6 Thrombocytopenia, unspecified; K21.9 Gastro-esophageal reflux disease without esophagitis; D53.9 Nutritional anemia, unspecified; W18.39XA Other fall on same level, initial encounter; E83.42 Hypomagnesemia; M47.812 Spondylosis without myelopathy or radiculopathy, cervical region; F03.90 Unspecified dementia, unspecified severity, without behavioral disturbance, psychotic disturbance, mood disturbance, and anxiety; D52.9 Folate deficiency anemia, unspecified; R29.6 Repeated falls; Z91.81 History of falling; Z98.41 Cataract extraction status, right eye; Z98.42 Cataract extraction status, left eye; Z79.899 Other long term (current) drug therapy; Z79.51 Long term (current) use of inhaled steroids; Z80.8 Family history of malignant neoplasm of other organs or systems; Z82.49 Family history of ischemic heart disease and other diseases of the circulatory system; Y93.89 Activity, other specified; Y92.89 Other specified places as the place of occurrence of the external cause; Y99.8 Other external cause status; Z78.1 Physical restraint status